=== PATIENT | female | born 1955 | race Two or more races ===

== ENCOUNTER 2018-09-07 12:04 | Emergency (ER) | payer OTHER ==
[2018-09-07] MEDS ORDERED: ONDANSETRON 4 MG/2 ML VIAL IVP ONE (12:31)
[2018-09-07] MEDS ORDERED: fentaNYL 100 MCG/2 ML INJ IVP ONE (12:35)
[2018-09-07] MEDS ORDERED: NS 1,000 ML IV ONE (12:35)
--- NOTE | 2018-09-07 12:37 | EDPHY ---
H & P Stated Complaint: abd pain left flank Time Seen by Provider: 09/07/18 12:22 HPI/ROS: Chief Complaint: Abdominal pain HPI: 63-year-old woman presenting with 9/10 abdominal pain which began this morning. Also is complaining of some difficulty urinating. Pain is in her left side. Has had some nausea vomiting last night. She has had pain similar to this in the past but not severe. She has a history of lay laparotomy for cholecystectomy and hernia repair. No history of bowel obstructions. No fevers or chills. No diarrhea or constipation. No fevers or chills. No cough. There are no aggravating or alleviating factors. ROS: 10 systems were reviewed and were negative except those elements noted in the HPI. PMH: Hypothyroidism, cholecystectomy, hernia repair Social History: No smoking, no alcohol, no recreational drug use Family History: non-contributory Physical Exam: Gen: Awake, Alert, uncomfortable appearing HEENT: Nose: no rhinorrhea Eyes: PERRLA, EOMI Mouth: Moist mucosa Neck: Supple, no JVD Chest: nontender, lungs clear to auscultation Heart: S1, S2 normal, no murmur Abd: Soft, mid left abdominal tenderness, no guarding Back: no CVA tenderness, no midline tenderness Ext: no edema, non-tender Skin: no rash Neuro: CN II-XII intact, Sensation grossly intact, Strength 5/5 in bilateral upper and lower extremities - Medical/Surgical History Other PMH: GB. hernia repair x2. back surgery - Social History Smoking Status: Never smoked Constitutional: Initial Vital Signs Temperature (C) 36.9 C 09/07/18 12:13 Heart Rate 66 09/07/18 12:13 Respiratory Rate 20 09/07/18 12:13 O2 Sat (%) 98 09/07/18 12:13 O2 Delivery Mode Room Air O2 (L/minute) 2 Allergies/Adverse Reactions: No Known Allergies Allergy (Unverified 09/07/18 12:16) Home Medications: Medication Instructions Recorded Acetaminophen 09/07/18 Medical Decision Making - Diagnostics Imaging Results: Imaging Impressions Abdomen CT 09/07/18 12:35 Impression: 1. No clear explanation for left-sided abdominal pain. No bowel obstruction or localized intraabdominal inflammatory process. 2. Scattered descending and sigmoid diverticula. No acute diverticulitis. 3. Urinary bladder wall thickening may be due to acute or chronic cystitis or neurogenic bladder. Wall thickening is likely overestimated since it is not fully distended. Findings discussed with emergency department physician, Dennys Hackett MD on September 07, 2018 at 1:50 p.m. ED Course/Re-evaluation: 63-year-old with acute severe left-sided abdominal pain. Pain resolved after IV fentanyl and Toradol. She is not pain-free. Abdomen is soft and benign. CBC is normal. Chemistries normal. CT scan of the abdomen pelvis is unremarkable. Stool awaiting urinalysis. Patient has been able to urinate. Will get in and out catheter. Otherwise she is very well-appearing. Urinalysis shows 2+ blood some protein. No nitrites or leuk esterase. No signs of infection. I do not think she passed a kidney stone because there is no evidence of hydro ureter or evidence of stone on her CT. Urinalysis was collected after he CT scan. This is still a possibility. Otherwise a cause of her abdominal pain is unclear. Laboratory evaluations are unremarkable. Abdomen is softer symptoms have resolved. Certainly she has not have any evidence of a surgical or infectious process at this time. Will discharge with follow-up with primary care physician, return for any concerns. - Data Points Laboratory Results: 09/07/18 12:42 POC Sodium 142 mEq/L mEq/L (135-145) POC Potassium 3.7 mEq/L mEq/L (3.3-5.0) POC Chloride 104.0 mEq/L mEq/L (97-110) POC Total CO2 27 mEq/L mEq/L (22-31) POC BUN 11 mg/dL mg/dL (7-23) POC Creatinine 0.7 mg/dL mg/dL (0.6-1.0) POC Glucose 82 mg/dL mg/dL (70-100) POC Calcium 9.5 mg/dL mg/dL (8.5-10.4) Medications Given: Discontinued Medications Fentanyl (Sublimaze) 50 mcg IVP EDNOW ONE Stop: 09/07/18 12:36 Last Admin: 09/07/18 12:40 Dose: 50 mcg Sodium Chloride (Ns) 1,000 mls @ 0 mls/hr IV ONCE ONE; Wide Open PRN Reason: Protocol Stop: 09/07/18 12:36 Last Admin: 09/07/18 12:30 Dose: 1,000 mls Ketorolac Tromethamine (Toradol) 15 mg IVP EDNOW ONE Stop: 09/07/18 13:07 Last Admin: 09/07/18 13:35 Dose: 15 mg Ondansetron HCl (Zofran) 4 mg IVP EDNOW ONE Stop: 09/07/18 12:32 Last Admin: 09/07/18 12:40 Dose: 4 mg Point of Care Test Results: CBC CBC Collection Date 09/07/18 CBC Collection Time 12:30 WBC 5.45 RBC 4.62 HGB 12.6 HCT 38.1 PLT 231 Neut # 1.77 Neut 32.5 LYMPH # 2.70 LYMPH 49.5 MCV 82.5 Chemistry 09/07/18 12:42 POC Sodium 142 mEq/L mEq/L (135-145) POC Potassium 3.7 mEq/L mEq/L (3.3-5.0) POC Chloride 104.0 mEq/L mEq/L (97-110) POC Total CO2 27 mEq/L mEq/L (22-31) POC BUN 11 mg/dL mg/dL (7-23) POC Creatinine 0.7 mg/dL mg/dL (0.6-1.0) POC Glucose 82 mg/dL mg/dL (70-100) POC Calcium 9.5 mg/dL mg/dL (8.5-10.4) Departure - Departure Disposition: Home, Routine, Self-Care Clinical Impression: Abdominal pain Condition: Good Instructions: Acute Abdominal Pain (ED) Additional Instructions: Follow up with primary care physician in 2-3 days for further evaluation. Return to the emergency department for worsening abdominal pain, fevers, uncontrolled nausea vomiting, fainting, or any other concerns. Referrals: [facility],. [Clinic] - As per Instructions
[2018-09-07] MEDS ORDERED: IOPAMIDOL (ISOVUE-300) 100 ML BTL ONE (12:50)
[2018-09-07] MEDS ORDERED: KETOROLAC 15 MG/1 ML SDV IVP ONE (13:06)
[2018-09-07 15:04] VITALS: BP 123/70
== END 2018-09-07 15:03 | disposition home or self-care (01) ==
LOC: CED 12:04
DX: R10.9 Unspecified abdominal pain (principal); R11.2 Nausea with vomiting, unspecified; E86.9 Volume depletion, unspecified; E03.9 Hypothyroidism, unspecified; Z90.49 Acquired absence of other specified parts of digestive tract
CPT/HCPCS: 74177-PO; 80048-ER; 85025-QW-ER; 96374-ER; 96375-ER; 99285-ER; J1885; J2405; J3010; Q9967